=== PATIENT | female | born 1960 | race Caucasian/White ===

== ENCOUNTER 2023-10-28 16:37 | Emergency (ER) | payer MEDICARE, OTHER, SELFPAY ==
[2023-10-28 16:38] VITALS: BMI 34.7
[2023-10-28 16:44] VITALS: BP 138/88
[2023-10-28 17:38] LABS: Urine Albumin Negative (Neg - Trace); Urine Bilirubin Negative (Negative); Urine Character Clear (Clear); Urine Color Yellow; Urine Glucose Negative (Negative); Urine Ketone Negative (Negative); Urine Leukocyte Trace (Negative); Urine Nitrite Negative (Negative); Urine Occult Blood Negative (Negative); Urine Specific Gravity 1.005 (<1.030); Urine Urobilinogen Negative (Neg - 1+)
[2023-10-28 17:53] LABS: Urine Squamous Cell >30 /LPF (Few)
[2023-10-28 17:54] LABS: Urine Bacteria Moderate (Negative); Urine Red Blood Cell 0-2 /HPF (0-2)
[2023-10-28 18:14] LABS: % Basophils 0.9 % (0-2); % Eosinophils 0.2 % (0-6); % Immature Granulocytes 0.5 % (0-0.5); % Monocytes 8.3 % (1.7-9.3); % Neutrophils 70.1 % (42.2-75.2); Absolute Basophils 0.1 10^3/uL (0-0.2); Absolute Immature Granulocytes 0.1 10^3/uL (0-0.05); Absolute Lymphocytes 2.4 10^3/uL (1.2-3.4); Absolute Neutrophils 8.4 10^3/uL (1.4-6.5); Hematocrit 37.6 % (37.0-47.0); Hemoglobin 12.3 g/dL (12.0-16.0); Mean Corp Hgb Conc. 32.7 g/dL (33.0-37.0); Mean Corpuscular Hgb 28.9 pg (27.0-31.0); Mean Corpuscular Volume 88.3 fL (81.0-99.0); Mean Platelet Volume 10.1 fL (7.4-10.4); Nucleated Red Blood Cells % 0 %; Platelet Count 416 10^3/uL (130-400); Red Blood Cell Count 4.26 10^6/uL (4.20-5.40); Red Cell Dist. Width 15.7 % (11.5-14.5)
[2023-10-28 18:31] LABS: ALT (SGPT) 18 U/L (0-35); AST (SGOT) 26 U/L (14-36); Alkaline Phosphatase 183 U/L (38-126); Blood Urea Nitrogen 14 mg/dl (7-17); Calcium 10.7 mg/dl (8.4-10.2); Carbon Dioxide 26 mmol/L (22-30); Chloride 100 mmol/L (98-107); Estimated Creatinine Clearance 65 ml/min; Glucose 107 mg/dl (70-99); Potassium 3.7 mmol/L (3.5-5.1); Sodium 138 mmol/L (135-145); Total Bilirubin 0.8 mg/dl (0.2-1.3); eGFR > 60.00
--- NOTE | 2023-10-28 19:01 | ED.GENMED ---
History of Present Illness
General
Chief Complaint: Urinary Symptoms
Source: patient
Exam Limitations: none
Time Seen by Provider: 10/28/23 16:58
Nursing documentation reviewed up to this point in time: agreed with
Travel History
Have you had any contact with someone who has COVID-19?: No
Do you have any symptoms of coronavirus? Fever > 100 degrees, chills, cough, shortness of breath, sore throat, loss of taste or smell, muscle aches, or headache?: No
History of Present Illness
History of Present Illness:
Patient to ED from crisis for complaints of UTI symptoms. Reports frequency and burning x 24 hours, No fever/chills,n/v/d. No abdominal or back pain. Came to crisis today with increased anxiety. Crisis requesting medical clearnance
Past History
Past History
ED Past Medical History: Arrthythmia (Afib), HTN, Psychiatric and Other (Anxiety , bipolar, GERD, peptic ulcer disease); Negative CAD
ED Past Surgical History: Other
Patient has exhibited threatening behavior?: No
Social History
Tobacco: Smoker
Alcohol: None
Drug: None
Personal:
Living: with family
Employment: Employed
Family History
Family History: Hypertension
Review of Systems
Review of Systems
Allergies reviewed?: Yes
All Other Systems: ROS reviewed and negative except as documented in HPI and ROS
Constitutional: Reports no symptoms
EENT: Reports no symptoms
Respiratory: Reports no symptoms
Cardiac: Reports no symptoms
ABD/GI: Reports no symptoms
: Reports dysuria and frequency
Musculoskeletal: Reports no symptoms
Skin: Reports no symptoms
Neurological: Reports no symptoms
Psychiatric: Reports anxiety
Phy Exam
General Physical Exam
General Presentation: well appearing and no apparent distress
General age: appears stated age
General Skin: warm and dry
General Habitus: normal
General Mental: alert
Cardiovascular Exam
Cardiovascular Exam: regular rate/rhythm and no edema
Pulmonary Exam
Pulmonary Exam: lungs clear and no respiratory distress
Gastrointestinal Exam
Gastrointestinal Exam: normal bowel sounds, non tender, soft, no organomegaly, non distended and no cva tenderness
Musculoskeletal Exam
Musculoskeletal Exam: full ROM and neuro vasc intact
Skin Exam
Skin Exam: normal color, warm/dry and no rash
Psychiatric Exam
Psychiatric Exam: anxious
Course
Orders/Labs/Results
Orders:
Orders
10/28/23 17:20
Urinalysis Reflex To Culture Urgent
Date Specimen was Collected: 10/28/23
Time Specimen was Collected: 17:18
Urine Microscopic Reflex Cult Urgent
Urine Culture Urgent
RAEGAN Source: U
Specimen Description:
Date Specimen was Collected: 10/28/23
Time Specimen was Collected: 17:18
10/28/23 18:05
Complete Blood Count/With Diff Urgent
Comprehensive Metabolic Panel Urgent
10/28/23 18:45
Urine Drug Abuse Screen Urgent
10/28/23 19:03
Clonazepam [Klonopin] 2 mg PO NOW STA
Nitrofurantoin Monohydrate [Macrobid] 100 mg PO NOW STA
Abnormal Lab Results
10/28/23 10/28/23
17:20 18:05
WBC 12.0 H 10^3/uL
(4.8-10.8)
MCHC 32.7 L g/dL
(33.0-37.0)
RDW 15.7 H %
(11.5-14.5)
Plt Count 416 H 10^3/uL
(130-400)
Abs Immat Gran (auto) 0.1 H 10^3/uL
(0-0.05)
Absolute Neuts (auto) 8.4 H 10^3/uL
(1.4-6.5)
Absolute Monos (auto) 1.0 H 10^3/uL
(0.1-0.6)
Lymphocytes % 20.0 L %
(20.5-51.1)
Glucose 107 H mg/dl
(70-99)
Calcium 10.7 H mg/dl
(8.4-10.2)
Alkaline Phosphatase 183 H U/L
(38-126)
Leukocyte Esterase Rfl Trace A
(Negative)
Urine Bacteria (Reflex) Moderate A
(Negative)
10/28/23 18:05
10/28/23 18:05
Vital Signs
Initial and Last Documented VS:
Initial Vital Signs
Temp Pulse Resp BP Pulse Ox
99.2 F 129 16 138/88 94
10/28/23 16:44 10/28/23 16:44 10/28/23 16:44 10/28/23 16:44 10/28/23 16:44
Last Documented Vital Signs
Temp Pulse Resp BP Pulse Ox
99.2 F 129 16 138/88 94
10/28/23 16:44 10/28/23 16:44 10/28/23 16:44 10/28/23 16:44 10/28/23 16:44
ED Attending Note
-
Portions of this chart may have been created with voice recognition software.� Occasional wrong word or��sound alike� substitutions may have occurred due to the inherent limitations of voice recognition software.
Discharge Plan
Departure
Patient Disposition: Home (Routine Discharge)
Date of Disposition: 10/28/23
Time of Disposition: 19:04
Patient with high blood pressure during this ER visit?: No
Condition: Good
Covid-19: Not Applicable
Discharge Problem:
Medical clearance for psychiatric admission
Instructions: Urinary Tract Infection, Adult (DC), Anxiety, Adult ED
Prescriptions:
New
nitrofurantoin monohyd/m-cryst [Macrobid] 100 mg capsule
100 mg PO Q12H 5 Days Qty: 10 0RF
No Action
alprazolam [Xanax] 2 MG tablet
2 mg PO BID
Ambien Tab
10 mg PO HS
pantoprazole 40 MG tablet,delayed release (DR/EC)
40 mg PO BID Qty: 60 2RF
amlodipine 5 MG tablet
5 mg PO DAILY
famotidine 20 MG tablet
20 mg PO DAILY
gabapentin 300 MG capsule
300 mg PO TID
oxycodone 5 MG tablet
5 mg PO Q4HPRN PRN (Reason: pain) Qty: 8 0RF
prochlorperazine maleate 10 MG tablet
10 mg PO Q8HPRN PRN (Reason: nausea) Qty: 14 0RF
Referrals:
Daquan Pires MD [Family Provider] - Follow up in 2-3 days
Interventions
Interventions:
*Risk Screen - Suicide Last Done: 10/28/23 17:15
*General Assessment Last Done: 10/28/23 16:44
*Neglect/Abuse Screening Last Done: 10/28/23 17:15
ED- Fall Risk Assessment Last Done: 10/28/23 17:15
*ED COVID-19 Vaccine History Last Done: 10/28/23 17:15
ED-Female Genitourinary Assessment Last Done: 10/28/23 17:15
Discharge Date and Time
Print Language: SLOVAK
[2023-10-28] MEDS: MACROBID 100 MG PO (19:13)
[2023-10-28] MEDS: KLONOPIN 2 MG PO (19:13)
== END 2023-10-28 19:26 | disposition home or self-care (01) ==
LOC: EMR 16:37
PROVIDERS: Nurse Practitioner; EMERGENCY PHYSICIAN Emergency Medicine; FAMILY PHYSICIAN Family Medicine
DX: Z13.30 Encounter for screening examination for mental health and behavioral disorders, unspecified (principal); R30.0 Dysuria; I48.91 Unspecified atrial fibrillation; I10 Essential (primary) hypertension; F41.9 Anxiety disorder, unspecified; R31.9 Hematuria, unspecified; K21.9 Gastro-esophageal reflux disease without esophagitis; Z87.11 Personal history of peptic ulcer disease; F17.200 Nicotine dependence, unspecified, uncomplicated
CPT/HCPCS: 99283; 80053; 81003; 81015; 85025; 87086